=== PATIENT | female | born 1990 | race American Indian/Alaskan Native ===

== ENCOUNTER 2017-12-16 19:35 | Emergency (ER) | payer OTHER ==
[2017-12-16 19:43] VITALS: TEMP 98.4; O2SAT 99
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
[2017-12-16 22:01] VITALS: BP 123/72; PULSE 70; RESP 18
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
== END 2017-12-16 21:20 | disposition home or self-care (01) ==
LOC: ED 19:35
DX: S49.92XA Unspecified injury of left shoulder and upper arm, initial encounter (principal); V49.9XXA Car occupant (driver) (passenger) injured in unspecified traffic accident, initial encounter; M25.512 Pain in left shoulder; F17.210 Nicotine dependence, cigarettes, uncomplicated; F20.9 Schizophrenia, unspecified